=== PATIENT | female | born 1985 | race Caucasian/White ===

== ENCOUNTER → 2021-09-23 15:08 | Outpatient (BNVA) | payer OTHER, SELFPAY | PROVIDERS: PCP Nurse Practitioner Family; Visit Provider Advanced Practice Midwife ==

== ENCOUNTER 2021-11-23 10:13 | Outpatient (REF) | payer OTHER, SELFPAY ==
[2021-11-23 16:07] LABS: CT PCR NOT DETECTED (Not Detect.); NG PCR NOT DETECTED (Not Detect.)
== END 2021-11-23 10:14 | disposition home or self-care (01) ==
LOC: HO.LAB 10:13
PROVIDERS: PCP Nurse Practitioner Family; Visit Provider Advanced Practice Midwife
DX: Z30.433 Encounter for removal and reinsertion of intrauterine contraceptive device (principal); Z20.2 Contact with and (suspected) exposure to infections with a predominantly sexual mode of transmission
CPT/HCPCS: 58300; 58301; 81025; 87491; 87591; J7298

== ENCOUNTER 2022-03-05 14:27 | Outpatient (REF) | payer OTHER, SELFPAY ==
[2022-03-11 15:21] LABS: HPV mRNA E6/E7 rflx Not Detected (Not Detected)
== END 2022-03-05 14:28 | disposition home or self-care (01) ==
LOC: HO.LAB 14:27
PROVIDERS: Visit Provider Advanced Practice Midwife
DX: Z01.419 Encounter for gynecological examination (general) (routine) without abnormal findings (principal); Z11.51 Encounter for screening for human papillomavirus (HPV)
CPT/HCPCS: 87624; 88142

== ENCOUNTER 2023-07-08 09:16 | Outpatient (AMB) | payer OTHER, SELFPAY ==
--- NOTE | 2023-07-08 09:18 | MHC.PC.OV ---
Vital Signs 07/08/23 09:19 Height 5 ft 2 in Weight 150 lb 4 oz BMI 27.5 BP 118/70 Blood Pressure Location Lt brachial Position Sitting Pulse 84 Pulse Source Pulse Oximeter Pulse Oximetry (%) 98 Oxygen Delivery Method Room Air Intake Visit Reasons[facility] Console Operator Required: No Accompanied by: Self / Same As Patient Allergies No Known Drug Allergies Allergy (Unknown, Verified 07/08/23 09:33) none Medication List - Last Reconciled 07/08/23 by IGNACIO García hydroxyzine HCl 25 mg PO Q6-8H PRN levonorgestrel (Mirena) intrauterine Tobacco use date assessed: 07/08/23 Dental Screening Dental Screen Date: 07/08/23 Did you have a dental visit in the last 12 months?: No Did you have a dental problem in the last 6 months where you did not have access to dental care?: No Was dental information given to patient?: Yes HPI HPI Comments History of Present Illness Details 37-year-old female past medical history significant for anxiety, depression, ADHD. Patient presents today for transfer care and physical exam. Patient reports was previously followed by [facility] and psychiatry for Adderall prescriptions however she missed appointments and was discharged from the practice. Patient requesting referral to reestablish care with medication provider referral entered to [facility] psychiatry. 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 Will send one-month supply these medications until patient able to reestablish care with medication provider. Patient reports up-to-date with eye exam Declined flu shot, Tdap up-to-date Patient currently follows with Елена RADER for Pap smears. [facility] Surgical History History of lumpectomy of right breast [place] teeth removed Family History Mother No problems noted. Father No problems noted. Social History (Updated 07/08/23 @ 09:39 by IGNACIO García) Household Members Other:: partner Housing: House Alcohol intake: current Alcohol intake frequency: a few times a week Patient Tobacco Use Status: Never used Tobacco e-Cigarette/Vaping Use: Never Used Substance Use Type: Marijuana service: No Current occupational status: employed Current occupation: [email or web address] Current occupational exposures/hazards: No Cognitive needs: No Hearing needs: No Vision needs: Yes Questionnaire PHQ-9 Over the last 2 weeks, how often have you been bothered by any of the following problems? 1. Little interest or pleasure in doing things: not at all 2. Feeling down, depressed, or hopeless: not at all 3. Trouble falling or staying asleep, or sleeping too much: not at all 4. Feeling tired or having little energy: not at all 5. Poor appetite or overeating: not at all 6. Feeling bad about yourself - or that you are a failure or have let yourself or your family down: not at all 7. Trouble concentrating on things, such as reading the newspaper or watching television: not at all 8. Moving or speaking so slowly that other people could have noticed. Or the opposite - being so fidgety or restless that you have been moving around a lot more than usual: not at all 9. Thoughts that you would be better off or of hurting yourself in some way: not at all Total score: 0 77840 - PHQ-9 Billing: Yes Source: Developed by Drs. Abilio Little, Billie Corbett, Richy Hart and colleagues, with an educational madeline from [employer]. Thrive Questionnaire Date Thrive assessed: 07/08/23 I am a: Patient What is your living situation today?: I have a steady place to live Within the past 12 months, did the food you bought not last and you didn't have the money to get more?: Never true Within the past 12 months, did you worry whether your food would run out before you got money to buy more?: Never true Do you have trouble paying for medicines?: No Do you have trouble getting transportation to medical appointments?: No Do you have trouble paying your heating and electricity bill?: No Do you have trouble taking care of your child, family member or friend?: No Do you have trouble with day-to-day activities such as bathing, preparing meals, shopping, managing finances, etc.?: No Are you currently unemployed and looking for a job?: No Are you interested in more education?: No Please select the resources that you would like help with: None Currently or been in a relationship where the following occur: no concerns reported AUDIT C Alcohol Use Questionnaire (AUDIT-C) 1. How often do you have a drink containing alcohol?: 2-3 times a week 2. How many drinks containing alcohol do you have on a typical day when you are drinking?: 3 or 4 3. How often do you have six or more drinks on one occasion?: Never Total Score: 4 KATHY-7 AMB Questionnaire KATHY-7 Date KATHY - 7 assessed: 07/08/23 Feeling nervous, anxious, or on edge: 0 = Not at all Not being able to stop or control worryin = Not at all Worrying too much about different things: 0 = Not at all Trouble relaxin = Not at all Being so restless that it is hard to sit still: 0 = Not at all Becoming easily annoyed or irritable: 0 = Not at all Feeling afraid as if something awful might happen: 0 = Not at all Total KATHY-7 score (0-4 normal; 5-9 mild; 10-14 moderate; 15-21 severe): 0 Source: Developed by Drs. Abilio Little, Billie Corbett, Richy Hart and colleagues, with an educational madeline from [employer]. KATHY-7 Assessment Billing KATHY-7 Assessment Tool: KATHY-7 Assessment 26457 Review of Systems Const Denies chills, Denies fatigue, Denies fever(s) and Denies poor appetite Eyes Denies no additional complaints ENT Reports Normal hearing present Card Denies chest pain, Denies syncope, Denies rapid heart rate and Denies dyspnea Resp Denies cough and Denies dyspnea GI Denies change in stool character, Denies constipation, Denies diarrhea, Denies nausea and Denies vomiting Denies urinary frequency, Denies dysuria and Denies urinary urgency Neuro Reports Normal hearing present, Denies confusion and Denies syncope Psych Denies confusion Endo Denies fatigue Physical exam (Primary Care) Vital Signs: Last Vital Signs Pulse 84 07/08/23 09:19 BP 118/70 07/08/23 09:19 Pulse Ox 98 07/08/23 09:19 Oxygen Delivery Method Room Air 07/08/23 09:19 BMI result Body Mass Index 27.5 Tobacco/Smoking Status: Tobacco use Status Tobacco use date assessed 07/08/23 07/08/23 09:26 Patient Tobacco Use Status Never used Tobacco 07/08/23 09:26 e-Cigarette/Vaping Use Never Used 07/08/23 09:26 PHQ-9: PHQ-9 Score PHQ-9: Total score 0 07/08/23 09:26 Thrive Assessment: Date of Thrive Assessment Date Thrive assessed 07/08/23 07/08/23 09:26 Currently or been in a relationship where the following occur: no concerns reported Const General: No confusion Orientation/consciousness: No confusion HENMT Head: Yes normocephalic and Yes atraumatic Ears: external ears normal and TM's normal bilaterally General nose exam: Normal external nose present and Normal nasal mucous membranes and turbinates present Face and sinus: Yes normal facial exam and Yes sinuses nontender Mouth: moist mucous membranes Throat: Yes tonsils normal Eyes Conjunctivae: conjunctivae normal Sclerae: sclerae normal Pupils: Equal, round and reactive pupils present and Pupils normal by confrontation EOM: EOMs intact bilaterally Direct Ophthalmoscopy: normal light reflex Neck Neck: Yes no lymphadenopathy and Yes supple Thyroid: Thyroid normal Chest Chest palpation & inspection: normal inspection of the chest Resp Effort & Inspection: normal respiratory effort Auscultation: clear to auscultation bilaterally, no crackles, no rhonchi and no wheezes Cardio Rate: regular rate Rhythm: regular rhythm Peripheral pulses: radial pulses present and dorsalis pedis present GI Inspection: Yes normal to inspection Palpation (GI): Soft to palpation, nontender and No hepatosplenomegaly present Auscultation: normoactive bowel sounds Skin General skin exam: no rashes or lesions noted Neuro General: No confusion Cranial nerves: Yes Equal, round and reactive pupils present and Yes Normal hearing present Cognition (Neuro): normal cognition Gait exam (Neuro): Normal gait present Motor exam (neuro): 5/5 motor strength present throughout Deep tendon reflexes (DTR's): Right brachioradialis reflex intensity grade: 2+, Left brachioradialis reflex intensity grade: 2+, Right patellar reflex intensity grade: 2+ and Left patellar reflex intensity grade: 2+ Extrem General: No edema Assessment and Plan Assessment & Plan (1) ADHD: Code(s): F90.9 - Attention-deficit hyperactivity disorder, unspecified type Plan: Lateral prescription sent to patient's pharmacy for one-month supply, until patient able to reestablish care with new psychiatrist. (2) Physical exam, annual: Code(s): Z00.00 - Encounter for general adult medical examination without abnormal findings Plan: Follow up in 1 year or sooner if needed. Fasting labs ordered. Plan Follow-up in 1 year for physical exam. Orders: Orders Complete Blood Count Auto Diff Today Z13.0 - Encounter for screening for diseases of the blood and blood-forming organs and certain disorders involving the immune mechanism Lipid Panel Today Z13.220 - Encounter for screening for lipoid disorders Comprehensive [place]. Panel Fast Today F90.9 - Attention-deficit hyperactivity disorder, unspecified type TSH reflex Free T4 Today Z13.29 - Encounter for screening for other suspected endocrine disorder Vitamin D 25-OH Total Today Z13.21 - Encounter for screening for nutritional disorder Referrals Psychiatry Referral F90.9 - Attention-deficit hyperactivity disorder, unspecified type Medications: New fluticasone propionate 50 mcg/actuation (Flonase Allergy Relief) administer into each nostril 2 sprays intranasal DAILY 16 grams 3RF dextroamphetamine-amphetamine 10 mg ER Partial Fill upon patient request. 10 mg PO DAILY 30 caps 0RF F90.9 - Attention-deficit hyperactivity disorder, unspecified type dextroamphetamine-amphetamine 10 mg Partial Fill upon patient request. 10 mg PO DAILY 30 tabs 0RF Coding Level of Care Code Est Pt Prev Care 18-39y(62513) Diagnoses ADHD F90.9 Physical exam, annual Z00.00 Additional Codes KATHY-7 Assessment Billing - KATHY-7 Assessment Tool: KATHY-7 Assessment 42648 ([id number])
[2023-07-08 09:19] VITALS: BP 118/70; PULSE 84; O2SAT 98; BMI 27.5
== END 2023-07-08 09:50 | disposition home or self-care (01) ==
PROVIDERS: PCP Nurse Practitioner Family; Visit Provider Nurse Practitioner Family
DX: Z00.00 Encounter for general adult medical examination without abnormal findings (principal); F90.9 Attention-deficit hyperactivity disorder, unspecified type
CPT/HCPCS: 99395

== ENCOUNTER 2023-08-24 10:11 | Outpatient (AMB) | payer OTHER, SELFPAY ==
[2023-08-24 10:43] VITALS: BP 118/80; BMI 27.6
--- NOTE | 2023-08-24 10:43 | MHC.OFFVIS ---
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 Doing well with concerns: Bilateral pelvic pain on and off alternating sides brief short stabbing discomfort. She denies any urinary symptoms. She tries to eat healthy and stays active with exercise. She denies vaginal itching and irritation. STI screening offered; she accepts. Denies family history of breast, ovarian or colon cancer. Last pap smear 2021, negative. Prior abnormal. [facility] Medical History ADHD Anxiety and depression Surgical History History of lumpectomy of right breast [place] teeth removed Family History Mother No problems noted. Father No problems noted. Social History Household Members Other:: partner Housing: House Alcohol intake: current Alcohol intake frequency: a few times a week Patient Tobacco Use Status: Never used Tobacco e-Cigarette/Vaping Use: Never Used Substance Use Type: Marijuana service: No Current occupational status: employed Current occupation: [employer] Current occupational exposures/hazards: No Cognitive needs: No Hearing needs: No Vision needs: Yes Female Reproductive History Menstrual control method: progestin IUCD (Mirena 11/2021) Total pregnancies: 0 Date of last pap smear: 03/05/22 (neg pap and hpv) Review of Systems Const All systems reviewed & are unremarkable except as noted in HPI and below Reports as per HPI Eyes Reports no additional complaints ENT Reports no additional complaints Card Reports no additional complaints Resp Reports no additional complaints GI Reports as per HPI and Reports no additional complaints Reports as per HPI Musc Reports no additional complaints Skin/Breast Reports as per HPI Neuro Reports no additional complaints Psych Reports no additional complaints Endo Reports no additional complaints Kit/Lymph Reports no additional complaints Aller/Immun Reports no additional complaints Physical Exam Vital Signs: Last Vital Signs BP 118/80 08/24/23 10:43 BMI result Body Mass Index 27.6 Const General: cooperative, healthy appearing, no acute distress, well developed and alert Orientation/consciousness: patient oriented x3 HEENT Head: Yes normal to inspection Eyes General: appearance normal, both eyes and all related structures Neck Neck: Yes normal visual inspection Thyroid: Thyroid normal Chest Chest palpation & inspection: normal inspection of the chest and other (no puckering, dimpling, peau de orange, retraction, discharge, masses) Breast/axilla inspection: normal inspection of the breasts Breast/axilla palpation: normal palpation of the breasts Resp Effort & Inspection: normal respiratory effort GI Inspection: Yes normal to inspection Palpation (GI): Soft to palpation Rectal Exam - Female: deferred General: Yes bladder normal to palpation External Female Exam: normal external appearance and normal appearance of the urethra Speculum Exam - Vagina: normal appearance of the vagina, normal palpation and normal vaginal discharge Speculum Exam - Cervix: normal appearance of the cervix, normal palpation and Other cervical findings present (IUD strings press) Bimanual exam- vagina & uterus: normal bimanual exam, normal palpation, uterine size normal (Slightly elongated possible fibroid), bladder normal to palpation, normal palpation and non-tender Bimanual Exam- Adnexa, other: no masses Skin General skin exam: no rashes or lesions noted Rashes: no rashes Neuro General: patient oriented x3 Cognition (Neuro): normal cognition Extrem General: Yes normal to inspection Psych Attitude: cooperative Thought process: Normal thought process present Results AMB Urinalysis, Automated UA Leukoctes 0 [place]/uL Last Edit by SHI Rodriguez on 08/24/23 11:30 UA Nitrite Negative Last Edit by SHI Rodriguez on 08/24/23 11:30 UA Urobilinogen 0 mg/dL Last Edit by SHI Rodriguez on 08/24/23 11:30 UA Protein 0 mg/dL Last Edit by SHI Rodriguez on 08/24/23 11:30 UA pH 7.5 Last Edit by SHI Rodriguez on 08/24/23 11:30 UA Blood 2 Andi/uL Last Edit by SHI Rodriguez on 08/24/23 11:30 UA Specific [place] 1.010 Last Edit by EmeliaSHI Kirk on 08/24/23 11:30 UA Ketone Negative Last Edit by SHI Rodriguez on 08/24/23 11:30 UA Bilirubin 0 mg/dL Last Edit by SHI Rodriguez on 08/24/23 11:30 UA Glucose 0 mg/dL Last Edit by SHI Rodriguez on 08/24/23 11:30 Results Reviewed Results Reviewed: Laboratory Last Values Urine pH (Auto) 7.5 08/24/23 11:13 Specific [place] (Auto) 1.010 08/24/23 11:13 Urine Protein (Auto) 0 mg/dL 08/24/23 11:13 Glucose (UA)(Auto) 0 mg/dL 08/24/23 11:13 Urine Ketones (Auto) Negative 08/24/23 11:13 Urine Blood (Auto) 2 Andi/uL 08/24/23 11:13 Urine Nitrite (Auto) Negative 08/24/23 11:13 Urine Bilirubin (Auto) 0 mg/dL 08/24/23 11:13 Urine Urobilinogen (Auto) 0 mg/dL 08/24/23 11:13 Leukocyte Esterase (Auto) 0 [place]/uL 08/24/23 11:13 Assessment & Plan Assessment & Plan (1) Encounter for well woman exam with routine gynecological exam: Code(s): Z01.419 - Encounter for gynecological examination (general) (routine) without abnormal findings (2) Pelvic pain: Code(s): R10.2 - Pelvic and perineal pain (3) IUD surveillance: Code(s): Z30.431 - Encounter for routine checking of intrauterine contraceptive device Plan Discussed: Workup for her pelvic pain to include cultures for urine in cervical, all pelvic ultrasound. And follow-up results in-person. Discussed IUD possible ovarian cyst development. Current recommendations for pap smears per ASCCP guidelines. Breast awareness and periodic breast exams. Maintain a healthy lifestyle including a well balanced diet and routine exercise. Use condoms for STI and prevention. Patient verbalizes understanding and agrees to the plan of care. She was given opportunity to ask questions and all questions were answered to the best of my ability. 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 This note is constructed using voice recognition software. While every effort has been made to ensure accuracy, volcanology teacher errors may have been included. Orders: Orders HIV Ab/Ag Today Z20.2 - Contact with and (suspected) exposure to infections with a predominantly sexual mode of transmission Hepatitis C Antibody Today Z20.2 - Contact with and (suspected) exposure to infections with a predominantly sexual mode of transmission Hepatitis B Core Antibody Today Z20.2 - Contact with and (suspected) exposure to infections with a predominantly sexual mode of transmission CT NG by PCR Today R10.2 - Pelvic and perineal pain US pelvic and transvaginal Today R10.2 - Pelvic and perineal pain, Z30.431 - Encounter for routine checking of intrauterine contraceptive device Syphilis Screen Today Z20.2 - Contact with and (suspected) exposure to infections with a predominantly sexual mode of transmission Bacterial Vaginosis Panel Today R10.2 - Pelvic and perineal pain AMB Urinalysis Automated Today R10.2 - Pelvic and perineal pain Coding Level of Care Code Est Pt Prev Care 18-39y(97955) Diagnoses Encounter for well woman exam with routine gynecological exam Z01.419 Pelvic pain R10.2 IUD surveillance Z30.431
== END 2023-08-24 11:20 | disposition home or self-care (01) ==
LOC: HO.HWS 10:11
PROVIDERS: PCP Internal Medicine; Visit Provider Advanced Practice Midwife
DX: Z01.419 Encounter for gynecological examination (general) (routine) without abnormal findings (principal); R10.2 Pelvic and perineal pain; Z30.431 Encounter for routine checking of intrauterine contraceptive device
CPT/HCPCS: 99395

== ENCOUNTER 2023-08-24 10:11 | Outpatient (REF) | payer OTHER, SELFPAY | END 2023-08-24 10:12 | disposition home or self-care (01) | LOC: HO.LNP 10:11 | PROVIDERS: PCP Internal Medicine; Visit Provider Advanced Practice Midwife | DX: R10.2 Pelvic and perineal pain (principal) | CPT/HCPCS: 81003 ==

== ENCOUNTER 2023-08-24 11:13 | Outpatient (REF) | payer OTHER, SELFPAY ==
[2023-08-25 14:07] LABS: BV Int Neg Control Negative (Negative); BV Int Pos Control Positive (Positive)
[2023-08-26 16:49] LABS: CT PCR NOT DETECTED (Not Detect.); NG PCR NOT DETECTED (Not Detect.)
== END 2023-08-24 11:14 | disposition home or self-care (01) ==
LOC: HO.LAB 11:13
PROVIDERS: Visit Provider Advanced Practice Midwife
DX: R10.2 Pelvic and perineal pain (principal)
CPT/HCPCS: 0353U; 87480; 87510; 87660

== ENCOUNTER 2023-11-01 13:04 | Outpatient (REF) | payer OTHER, SELFPAY ==
--- NOTE | ~2023-11-01 | US_ITS ---
EXAMINATION: US PELVIS COMPLETE CLINICAL INFORMATION: Pelvic pain COMPARISON: None TECHNIQUE: Transabdominal and transvaginal imaging was performed. FINDINGS: The uterus is of normal size and echogenicity measuring 7.1 x 3.2 x 3.3 cm. A regular homogeneous endometrium is identified measuring 0.3 cm. A 0.9 cm intramural myoma in the anterior body of the uterus. Intrauterine device in place. Both ovaries are of normal size and echogenicity. The right measures 3.5 x 1.3 x 1.7 cm for a volume of 4 mL. The left measures 3.2 x 1.7 x 2.0 cm for a volume of 5.7 mL. There is no pelvic free fluid. US/US pelvic and transvaginal IMPRESSION: 1. Intrauterine device in place. 2. A 0.9 cm intramural myoma in the anterior body of the uterus. 3. Unremarkable sonographic appearance of the ovaries.
== END 2023-11-01 13:05 | disposition home or self-care (01) ==
LOC: HO.US 13:04
PROVIDERS: PCP Internal Medicine; Visit Provider Advanced Practice Midwife
DX: Z30.431 Encounter for routine checking of intrauterine contraceptive device (principal); R10.2 Pelvic and perineal pain
CPT/HCPCS: 76830; 76856

== ENCOUNTER 2023-12-01 15:10 | Outpatient (AMB) | payer OTHER, SELFPAY ==
--- NOTE | 2023-12-01 15:24 | MHC.OFFVIS ---
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 History of IUD use. She reports the pain has resolved. [facility] Medical History (Updated 12/01/23 @ 15:41 by Елена Prado CNM) Fibroid ADHD Anxiety and depression Surgical History History of lumpectomy of right breast [place] teeth removed Family History Mother No problems noted. Father No problems noted. Social History Household Members Other:: partner Housing: House Alcohol intake: current Alcohol intake frequency: a few times a week Patient Tobacco Use Status: Never used Tobacco e-Cigarette/Vaping Use: Never Used Substance Use Type: Marijuana service: No Current occupational status: employed Current occupation: [employer] Current occupational exposures/hazards: No Cognitive needs: No Hearing needs: No Vision needs: Yes Female Reproductive History Menstrual control method: progestin IUCD Date of last pap smear: 03/08/22 (negative) Review of Systems Const All systems reviewed & are unremarkable except as noted in HPI and below Endo Reports no additional complaints Physical Exam Const General: cooperative, healthy appearing and no acute distress Psych Appearance: well kempt Attitude: cooperative Thought process: Normal thought process present Results Reviewed Results Reviewed: [address] [address] Ultrasound Report Signed Patient: Dhara Jin MR#: [id number] : 1985 Acct:[id number] Age/Sex: 37 / F ADM Date: 11/01/23 Loc: HO.US Attending Dr: Елена Prado CNM Ordering Physician: Елена Prado CNM Date of Service: 11/01/23 Procedure(s): US pelvic and transvaginal Accession Number(s): [id number] cc: Елена Prado CNM; Salena Eng MD~ EXAMINATION: US PELVIS COMPLETE CLINICAL INFORMATION: Pelvic pain COMPARISON: None TECHNIQUE: Transabdominal and transvaginal imaging was performed. FINDINGS: The uterus is of normal size and echogenicity measuring 7.1 x 3.2 x 3.3 cm. A regular homogeneous endometrium is identified measuring 0.3 cm. A 0.9 cm intramural myoma in the anterior body of the uterus. Intrauterine device in place. Both ovaries are of normal size and echogenicity. The right measures 3.5 x 1.3 x 1.7 cm for a volume of 4 mL. The left measures 3.2 x 1.7 x 2.0 cm for a volume of 5.7 mL. There is no pelvic free fluid. US/US pelvic and transvaginal IMPRESSION: 1. Intrauterine device in place. 2. A 0.9 cm intramural myoma in the anterior body of the uterus. 3. Unremarkable sonographic appearance of the ovaries. Dictated By: Shanice Cooney MD Signed By: <Electronically signed by Shanice Cooney MD in OV> 11/04/23 1822 DD/ 1353 TD/TT: Studio Coordinator: Assessment & Plan Assessment & Plan (1) Encounter to discuss test results: Code(s): Z71.2 - Person consulting for explanation of examination or test findings (2) Fibroid: Code(s): D21.9 - Benign neoplasm of connective and other soft tissue, unspecified Plan Discussed: Ultrasound findings small fibroid, IUD in place . Counseled re: Leiomyoma: common pelvic neoplasm. Differential diagnosis-may include leiomyosarcoma which is a rare uterine sarcoma 3-7/100,000, difficult to distinguish from fibroids on ultrasound from uterine sarcoma's. Unlikely any single test will have a highly positive predictive value. Hysterectomy is not recommended for sole purpose of excluding malignant neoplasm. Report any PMB/AUB. Pelvic pressure, bloating, or pain. Consult for surgical exploration verses expectant management offered. Expectant management follow up for stability. Referral to MD if indicated for level of care. All of her questions and concerns were addressed to the best of my ability and shared decision making. She is agreeable to the plan of care. This note is constructed using voice recognition software. While every effort has been made to ensure accuracy, marking room supervisor errors may have been included. Orders: Orders US pelvic and transvaginal 08/06/24 D21.9 - Benign neoplasm of connective and other soft tissue, unspecified Coding Level of Care Code Est Pt Level 3 (90843) Diagnoses Encounter to discuss test results Z71.2 Fibroid D21.9
[2023-12-01 15:26] VITALS: BP 120/66; BMI 27.6
== END 2023-12-01 15:39 | disposition home or self-care (01) ==
PROVIDERS: PCP Internal Medicine; Visit Provider Advanced Practice Midwife
DX: Z71.2 Person consulting for explanation of examination or test findings (principal); D21.9 Benign neoplasm of connective and other soft tissue, unspecified
CPT/HCPCS: 99213

== ENCOUNTER → 2023-12-01 15:10 | Outpatient (BNVA) | payer OTHER, SELFPAY | PROVIDERS: PCP Internal Medicine; Visit Provider Advanced Practice Midwife | DX: Z71.2 Person consulting for explanation of examination or test findings (principal); D21.9 Benign neoplasm of connective and other soft tissue, unspecified | CPT/HCPCS: 99212 ==

== ENCOUNTER 2023-12-20 13:58 | Outpatient (AMB) | payer OTHER, SELFPAY ==
[2023-12-20 14:01] VITALS: BP 112/80; BMI 28.0
--- NOTE | 2023-12-20 14:01 | MHC.PC.OV ---
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: No Accompanied by: Self / Same As Patient Allergies No Known Drug Allergies Allergy (Unknown, Verified 12/20/23 14:27) none Medication List - Last Reconciled 12/20/23 by Salean Flores MD dextroamphetamine-amphetamine 10 mg ER 10 mg PO DAILY fluticasone propionate 50 mcg/actuation (Flonase Allergy Relief) 2 sprays intranasal DAILY levonorgestrel (Mirena) intrauterine Tobacco use date assessed: 12/20/23 Dental Screening Dental Screen Date: 12/20/23 Did you have a dental visit in the last 12 months?: No Did you have a dental problem in the last 6 months where you did not have access to dental care?: No Was dental information given to patient?: Patient has dentist HPI HPI Comments History of Present Illness Details This is a 38-year-old female with ADHD and mild major depression that comes today to establish care. Doing well with Adderall for her ADHD and has had no side effects. I thoroughly explained side effects such as elevated blood pressure, insomnia and addiction. She is aware that Adderall has no withdrawal symptoms. Her mild major depression has been stable with counseling. No need for medications. No chest pain or shortness on breath. [facility] Medical History (Updated 12/20/23 @ 16:01 by Salena Flores MD) Fibroid ADHD Anxiety and depression Surgical History History of lumpectomy of right breast [place] teeth removed Family History Mother No problems noted. Father No problems noted. Social History (Updated 12/20/23 @ 14:32 by Salena Flores MD) Household Members Other:: partner Housing: House Alcohol intake: current Alcohol intake frequency: a few times a week Alcohol type: beer and wine Patient Tobacco Use Status: Never used Tobacco e-Cigarette/Vaping Use: Never Used Second Hand Smoke Exposure: No Substance Use Type: Marijuana service: No Current occupational status: employed Current occupation: [employer] Current occupational exposures/hazards: No Cognitive needs: No Hearing needs: No Vision needs: Yes Questionnaire PHQ-9 Over the last 2 weeks, how often have you been bothered by any of the following problems? 1. Little interest or pleasure in doing things: not at all 2. Feeling down, depressed, or hopeless: not at all 3. Trouble falling or staying asleep, or sleeping too much: not at all 4. Feeling tired or having little energy: not at all 5. Poor appetite or overeating: not at all 6. Feeling bad about yourself - or that you are a failure or have let yourself or your family down: not at all 7. Trouble concentrating on things, such as reading the newspaper or watching television: several days 8. Moving or speaking so slowly that other people could have noticed. Or the opposite - being so fidgety or restless that you have been moving around a lot more than usual: more than half the days 9. Thoughts that you would be better off or of hurting yourself in some way: not at all Total score: 3 Depression Screening Interpretation: Positive Depression Screening Follow-up: Existing condition, Community Mental Health Worker F/U and Follow-up Visit Requested Depression Screening Done: Yes 45608 - PHQ-9 Billing: Yes Source: Developed by Drs. Abilio Little, Billie Corbett, Richy Hart and colleagues, with an educational madeline from [employer]. Thrive Questionnaire Date Thrive assessed: 12/20/23 I am a: Patient What is your living situation today?: I have a steady place to live Within the past 12 months, did the food you bought not last and you didn't have the money to get more?: Never true Within the past 12 months, did you worry whether your food would run out before you got money to buy more?: Never true Do you have trouble paying for medicines?: No Do you have trouble getting transportation to medical appointments?: No Do you have trouble paying your heating and electricity bill?: No Do you have trouble taking care of your child, family member or friend?: No Do you have trouble with day-to-day activities such as bathing, preparing meals, shopping, managing finances, etc.?: No Are you currently unemployed and looking for a job?: No Are you interested in more education?: No Please select the resources that you would like help with: None Currently or been in a relationship where the following occur: no concerns reported THRIVE Score: 0 AUDIT C Alcohol Use Questionnaire (AUDIT-C) 1. How often do you have a drink containing alcohol?: 2-3 times a week 2. How many drinks containing alcohol do you have on a typical day when you are drinking?: 1 or 2 3. How often do you have six or more drinks on one occasion?: Never Total Score: 3 KATHY-7 AMB Questionnaire KATHY-7 Date KATHY - 7 assessed: 12/20/23 Feeling nervous, anxious, or on edge: 1 = Several days Not being able to stop or control worryin = Not at all Worrying too much about different things: 1 = Several days Trouble relaxin = More than half the days Being so restless that it is hard to sit still: 2 = More than half the days Becoming easily annoyed or irritable: 2 = More than half the days Feeling afraid as if something awful might happen: 2 = More than half the days Total KATHY-7 score (0-4 normal; 5-9 mild; 10-14 moderate; 15-21 severe): 10 Source: Developed by Drs. Abilio Little, Billie Corbett, Richy Hart and colleagues, with an educational madeline from [employer]. KATHY-7 Assessment Billing KATHY-7 Assessment Tool: KATHY-7 Assessment 98940 Review of Systems Const All systems reviewed & are unremarkable except as noted in HPI and below Card Denies chest pain at rest, Denies chest pain with activity, Denies edema, Denies irregular heart rhythm, Denies claudication, Denies dyspnea, Denies dyspnea on exertion, Denies orthopnea, Denies paroxysmal nocturnal dyspnea and Denies slow heart rate Resp Denies cough, Denies dyspnea and Denies dyspnea on exertion Physical exam (Primary Care) Vital Signs: Last Vital Signs BP 112/80 12/20/23 14:01 BMI result Body Mass Index 28.0 Tobacco/Smoking Status: Tobacco use Status Tobacco use date assessed 12/20/23 12/20/23 14:19 Patient Tobacco Use Status Never used Tobacco 12/20/23 14:32 e-Cigarette/Vaping Use Never Used 12/20/23 14:32 PHQ-9: PHQ-9 Score PHQ-9: Total score 3 12/20/23 14:33 Depression Screening Interpretation: Positive Depression Screening Follow-up: Existing condition, Community Mental Health Worker F/U and Follow-up Visit Requested Thrive Assessment: Date of Thrive Assessment Date Thrive assessed 12/20/23 12/20/23 14:19 Currently or been in a relationship where the following occur: no concerns reported Resp Effort & Inspection: normal respiratory effort Auscultation: clear to auscultation bilaterally Cardio Jugular venous distension: no JVD Rate: regular rate Rhythm: regular rhythm Heart sounds: S1 normal heart sound present and S2 normal heart sound present Extrem General: Yes full ROM Assessment and Plan Assessment & Plan (1) ADHD: Code(s): F90.9 - Attention-deficit hyperactivity disorder, unspecified type Qualifiers: Attention deficit-hyperactivity disorder type: predominantly inattentive Qualified Code(s): F90.0 - Attention-deficit hyperactivity disorder, predominantly inattentive type Plan: Continue Adderall. (2) Mild major depression: Comment: Follow by counseling Code(s): F32.0 - Major depressive disorder, single episode, mild Plan: Continue counseling. Medications: Refilled dextroamphetamine-amphetamine 10 mg ER Partial Fill upon patient request. 10 mg PO DAILY 30 caps 0RF F90.9 - Attention-deficit hyperactivity disorder, unspecified type fluticasone propionate 50 mcg/actuation (Flonase Allergy Relief) administer into each nostril 2 sprays intranasal DAILY 16 grams 3RF Coding Level of Care Code Est Pt Level 3 (78900) Diagnoses Attention deficit hyperactivity disorder (ADHD), predominantly inattentive type F90.0 Attention deficit-hyperactivity disorder type: predominantly inattentive Mild major depression F32.0 Additional Codes KATHY-7 Assessment Billing - KATHY-7 Assessment Tool: KATHY-7 Assessment 87862 ([id number]) Time Spent (min) 19
== END 2023-12-20 14:39 | disposition home or self-care (01) ==
PROVIDERS: PCP Internal Medicine; Visit Provider Internal Medicine
DX: F90.0 Attention-deficit hyperactivity disorder, predominantly inattentive type (principal); F32.0 Major depressive disorder, single episode, mild
CPT/HCPCS: 99213

== ENCOUNTER 2025-05-16 10:49 | Outpatient (AMB) | payer OTHER, SELFPAY ==
[2025-05-16 11:06] VITALS: BP 118/80; PULSE 82; RESP 18; TEMP 36.3; O2SAT 97; BMI 29.0
--- NOTE | 2025-05-16 11:06 | A.OFFPC_ITS ---
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 Required: No Accompanied by: Self / Same As Patient Allergies No Known Drug Allergies Allergy (Unknown, Verified 05/16/25 11:23) none Medication List - Last Reconciled 05/16/25 by Salena Flores MD dextroamphetamine sulfate 5 mg PO BID 30 days dextroamphetamine-amphetamine 10 mg ER 10 mg PO DAILY 30 days levonorgestrel (Mirena) intrauterine Tobacco use date assessed: 05/16/25 Dental Screening Dental Screen Date: 05/16/25 Did you have a dental visit in the last 12 months?: No Did you have a dental problem in the last 6 months where you did not have access to dental care?: No Was dental information given to patient?: No HPI HPI Comments History of Present Illness Details Patient comes today complaining of a skin mole that has been present for over a year but now it has grown in size. Denies any pruritus or bleeding. Will be referred to Dermatology. She has ADHD on Adderall and reports no side effects. [facility] Medical History (Updated 05/16/25 @ 11:27 by Salena Flores MD) Fibroid ADHD Anxiety and depression Surgical History History of lumpectomy of right breast [place] teeth removed Family History Mother No problems noted. Father No problems noted. Social History Household Members Other:: partner Housing: House Alcohol intake: current Alcohol intake frequency: a few times a week Alcohol type: beer and wine Patient Tobacco Use Status: Never used Tobacco e-Cigarette/Vaping Use: Never Used Second Hand Smoke Exposure: No Substance Use Type: Marijuana service: No Current occupational status: employed Current occupation: [employer] Current occupational exposures/hazards: No Cognitive needs: No Hearing needs: No Vision needs: Yes Questionnaire PHQ-9 Over the last 2 weeks, how often have you been bothered by any of the following problems? 1. Little interest or pleasure in doing things: not at all 2. Feeling down, depressed, or hopeless: not at all 3. Trouble falling or staying asleep, or sleeping too much: not at all 4. Feeling tired or having little energy: not at all 5. Poor appetite or overeating: not at all 6. Feeling bad about yourself - or that you are a failure or have let yourself or your family down: not at all 7. Trouble concentrating on things, such as reading the newspaper or watching television: several days 8. Moving or speaking so slowly that other people could have noticed. Or the opposite - being so fidgety or restless that you have been moving around a lot more than usual: not at all 9. Thoughts that you would be better off or of hurting yourself in some wa y: not at all Total score: 1 Depression Screening Interpretation: Negative Depression Screening Done: Yes 90591 - PHQ-9 Billing: Yes Source: Developed by Drs. Abilio Little, Billie Corbett, Richy Hart and colleagues, with an educational madeline from [employer]. Thrive Questionnaire Date Thrive assessed: 12/20/23 I am a: Patient What is your living situation today?: I have a steady place to live Within the past 12 months, did the food you bought not last and you didn't have the money to get more?: I choose not to answer this question Within the past 12 months, did you worry whether your food would run out before you got money to buy more?: I choose not to answer this question Do you have trouble paying for medicines?: I choose not to answer this question Do you have trouble getting transportation to medical appointments?: No Do you have trouble paying your heating and electricity bill?: Yes Do you have trouble taking care of your child, family member or friend?: No Do you have trouble with day-to-day activities such as bathing, preparing meals, shopping, managing finances, etc.?: I choose not to answer this question Are you currently unemployed and looking for a job?: I choose not to answer this question Are you interested in more education?: No Please select the resources that you would like help with: None Currently or been in a relationship where the following occur: No concerns reported THRIVE Score: 1 AUDIT C Alcohol Use Questionnaire (AUDIT-C) 1. How often do you have a drink containing alcohol?: 2-3 times a week 2. How many drinks containing alcohol do you have on a typical day when you are drinking?: 1 or 2 3. How often do you have six or more drinks on one occasion?: Never Total Score: 3 KATHY-7 AMB Questionnaire KATHY-7 Date KATHY - 7 assessed: 12/20/23 Feeling nervous, anxious, or on edge: 1 = Several days Not being able to stop or control worryin = Not at all Worrying too much about different things: 0 = Not at all Trouble relaxin = Several days Being so restless that it is hard to sit still: 1 = Several days Becoming easily annoyed or irritable: 1 = Several days Feeling afraid as if something awful might happen: 1 = Several days Total KATHY-7 score (0-4 normal; 5-9 mild; 10-14 moderate; 15-21 severe): 5 Source: Developed by Drs. Abilio Little, Billie Corbett, Richy Hart and colleagues, with an educational madeline from [employer]. KATHY-7 Assessment Billing KATHY-7 Assessment Tool: KATHY-7 Assessment 82539 Review of Systems Const All systems reviewed & are unremarkable except as noted in HPI and below Card Denies chest pain at rest, Denies chest pain with activity, Denies edema, Denies irregular heart rhythm, Denies claudication, Denies dyspnea, Denies dyspnea on exertion, Denies orthopnea, Denies paroxysmal nocturnal dyspnea and Denies slow heart rate Resp Denies cough, Denies dyspnea and Denies dyspnea on exertion GI Denies abdominal pain, Denies change in bowel habits, Denies excessive flatus, Denies nausea and Denies vomiting Physical exam (Primary Care) Vital Signs: Last Vital Signs Temp 97.3 F 05/16/25 11:06 Pulse 82 05/16/25 11:06 Resp 18 05/16/25 11:06 BP 118/80 05/16/25 11:06 Pulse Ox 97 05/16/25 11:06 Oxygen Delivery Method Room Air 05/16/25 11:06 BMI result Body Mass Index 29.0 Tobacco/Smoking Status: Tobacco use Status Tobacco use date assessed 05/16/25 05/16/25 11:13 Patient Tobacco Use Status Never used Tobacco 05/16/25 11:13 e-Cigarette/Vaping Use Never Used 05/16/25 11:13 PHQ-9: PHQ-9 Score PHQ-9: Total score 1 05/16/25 11:13 Depression Screening Interpretation: Negative Thrive Assessment: Date of Thrive Assessment Date Thrive assessed 12/20/23 05/16/25 11:13 Currently or been in a relationship where the following occur: No concerns reported Resp Effort & Inspection: normal respiratory effort Auscultation: clear to auscultation bilaterally Cardio Jugular venous distension: no JVD Rate: regular rate Rhythm: regular rhythm Heart sounds: S1 normal heart sound present and S2 normal heart sound present GI Inspection: Yes normal to inspection Palpation (GI): Soft to palpation and nontender Auscultation: normal bowel sounds Extrem General: Yes full ROM Coding Level of Care Code Est Pt Level 3 (88032) Diagnoses Attention deficit hyperactivity disorder (ADHD), predominantly inattentive type F90.0 Attention deficit-hyperactivity disorder type: predominantly inattentive Skin lesion L98.9 Additional Codes PHQ-9 - 95456 - PHQ-9 Billing: Yes ([id number]) KATHY-7 Assessment Billing - KATHY-7 Assessment Tool: KATHY-7 Assessment 07095 ([id number]) Time Spent (min) 18 Assessment & Plan Assessment & Plan (1) ADHD: Code(s): F90.9 - Attention-deficit hyperactivity disorder, unspecified type Category: Medical Qualifiers: Attention deficit-hyperactivity disorder type: predominantly inattentive Qualified Code(s): F90.0 - Attention-deficit hyperactivity disorder, predominantly inattentive type (2) Skin lesion: Code(s): L98.9 - Disorder of the skin and subcutaneous tissue, unspecified Category: Medical Plan Continue same meds. Referred to Dermatology. Orders: Referrals Dermatology Referral L98.9 - Disorder of the skin and subcutaneous tissue, unspecified
--- OUTSIDE RECORDS SUMMARY | 2025-05-16 13:19 | XMS_ITS ---
Author Name [facility] Organization Unknown Care Team Organization Name Specialty Phone Email Start Date End [facility]
--- OUTSIDE RECORDS SUMMARY | 2025-05-16 13:19 | XMS_ITS | Clinical Summary ---
Author Organization [facility] Address [address] [place] [address] Phone Care Team Providers Care Exchange Underwriting Consultant Name Role Phone Unknown, Unknown Primary Care Provider Aly carey Allergies No known active allergies Medications levonorgestrel (MIRENA) 20 mcg/24 hours (5 yrs) 52 mg intrauterine device 1 Device by Intrauterine route Once every 5 years. Active dextroamphetamin e sulfate 5 MG tablet 5 Active dextroamphetamin e-amphetamine (ADDERALL XR) 10 MG 24 hr capsule Take 1 capsule by mouth every morning. 4 Active Active Problems No known active problems Social History Tobacco Use Types Packs/Day Years Used Date Smoking Tobacco: Never Assessed Education Answer Date Recorded Are you interested in more education? Not on chester e 11/19/2022 Are you concerned about learning? Not on file 11/19/2022 No 11/19/2022 No 11/19/2022 Digital Access Answer Date Recorded No 12/18/2022 No 12/18/2022 Reliable internet access at home? Not on file 12/18/2022 Device with a working camera? Not on file Comments Unknown Sex and Gender Information Value Date Recorded Sex Assigned at Not on file Legal Sex Female 4:49 PM EDT Gender Identity Not on file Sexual Orientation Not on file Last Filed Vital Signs Vital Sign Reading Time Taken Comments Blood Pressure 138/79 08/02/2024 1:13 PM EST Pulse 101 08/02/2024 1:13 PM EST Temperature 36.6 C (97.9 F) 08/02/2024 1:13 PM EST Respiratory Rate 17 08/02/2024 1:13 PM EST Oxygen Saturation 97% 08/02/2024 1:13 PM EST Inhaled Oxygen Concentration - - Weight 61.2 kg (135 lb) 08/02/2024 1:13 PM EST Height 154.9 cm (5' 1 ) 08/02/2024 1:13 PM EST Body Mass Index 25.51 08/02/2024 1:13 PM EST Plan of Treatment Health Maintenance Due Date Last Done Comments DEPRESSION SCREENING 1996 SMOKING Hx and SMOKELESS TOBACCO SCREENING 1997 HEPATITIS C SCREENING 2002 HIV ONE-TIME SCREENING (18-6 5 YEARS) 2002 PAP SMEAR 2005 SCREENING FOR DIABETES 11/03/2019 MAMMOGRAM 2024 INFLUENZA VACCINE (#1) 2025 COVID-19 VACCINE (2024-2 6 season) 2025 03/24/2021, 03/03/2021 Adult Td,Tdap Booster 10/26/2026 10/26/2016 , 12/23/2006 HEPATITIS A VACCINES Aged Out No long er eligible based on patient's age to complete this topic HIB VACCINES Aged Out No longer eligi ble based on patient's age to complete this topic MENINGOCOCCAL VACCINES (ACWY) Aged Out No longer eligible based on patient's age to complete this topic MENINGOCOCCAL VACCINES (B) Aged Out N o longer eligible based on patient's age to complete this topic PNEUMOCOCCAL VACCINES (0-49 years) Aged Out No longer eligible b ased on patient's age to complete this topic Medical Devices Not on file Insurance [facility] PUBLIC [employer]ANS DIRECT JAZMIN ESPARZA [id number] [facility] DIRECT Care Teams Exchange Underwriting Consultant Relationship Specialty Start Date End Date Unknown, Unknown, PCP - General 02/25/21 Additional Source Comments The information contained in this document represents components of the legal health record. It is not the complete legal health record.[facility]
== END 2025-05-16 11:30 | disposition home or self-care (01) ==
LOC: HO.HMCH 10:50
PROVIDERS: PCP Internal Medicine; Visit Provider Internal Medicine
DX: F90.0 Attention-deficit hyperactivity disorder, predominantly inattentive type (principal); L98.9 Disorder of the skin and subcutaneous tissue, unspecified

== ENCOUNTER → 2025-05-16 10:49 | Outpatient (BNVA) | payer OTHER, SELFPAY | PROVIDERS: PCP Internal Medicine; Visit Provider Internal Medicine | DX: F90.0 Attention-deficit hyperactivity disorder, predominantly inattentive type (principal); D22.9 Melanocytic nevi, unspecified | CPT/HCPCS: 96127; 99212 ==

== ENCOUNTER 2025-06-18 08:29 | Outpatient (AMB) | payer OTHER, SELFPAY ==
[2025-06-18 08:43] VITALS: BP 120/80; PULSE 87; TEMP 36.2; O2SAT 99; BMI 29.3
--- NOTE | 2025-06-18 08:43 | A.OFFPC_ITS ---
Vital Signs 06/18/25 08:43 Height 5 ft 2 in Weight 160 lb 2 oz BMI 29.3 BP 120/80 Blood Pressure Location Lt brachial Position Sitting Pulse 87 Pulse Source Pulse Oximeter Temp 97.1 F Temp Source Temporal Artery Scan Pulse Oximetry (%) 99 Oxygen Delivery Method Room Air Intake Visit Reasons: annual exam Study Assistant Required: No Accompanied by: Self / Same As Patient Allergies No Known Drug Allergies Allergy (Unknown, Verified 06/18/25 09:02) none Medication List - Last Reconciled 06/18/25 by Salena Flores MD dextroamphetamine sulfate 5 mg PO BID 30 days dextroamphetamine-amphetamine 10 mg ER 10 mg PO DAILY 30 days levonorgestrel (Mirena) intrauterine Tobacco use date assessed: 06/18/25 Dental Screening Dental Screen Date: 06/18/25 Did you have a dental visit in the last 12 months?: No Did you have a dental problem in the last 6 months where you did not have access to dental care?: No HPI HPI Comments History of Present Illness Details The patient is a 39-year-old individual presenting for a physical exam. The patient's last Pap smear was in 2021 and is up to date. The last Tdap vaccine was administered in 2021 and is not due until 2031. The patient has a surgical history of a right breast lumpectomy and removal of wisdom teeth. Current medications include Adderall 5 mg twice a day, Adderall extended release 10 mg once a day, and a Mirena IUD. The patient reports no allergies to medications. In terms of family history, the patient's parents are alive and have no known health problems. Regarding social history, the patient has never smoked and drinks beer and wine a few times per week. - Pap smear: Up to date, last performed in 2021. - Tdap immunization: Up to date, last ad ministered in 2021. - Mammogram: Recommended due to age, an order will be placed. - Influenza vaccine: Offered and decline d by the patient. - Laboratory screening: Orders will be p laced for a cholesterol panel, blood glucose, and kidney and liver function tests. - HIV screening: Recommended and accepte d by the patient; an order will be placed. [facility] Medical History (Updated 06/18/25 @ 10:21 by Salena Flores MD) Mild major depression Fibroid ADHD Anxiety and depression Surgical History History of lumpectomy of right breast [place] teeth removed Family History Mother No problems noted. Father No problems noted. Social History Household Members Other:: partner Housing: House Alcohol intake: current Alcohol intake frequency: a few times a week Alcohol type: beer and wine Patient Tobacco Use Status: Never used Tobacco e-Cigarette/Vaping Use: Never Used Second Hand Smoke Exposure: No Substance Use Type: Marijuana service: No Current occupational status: employed Current occupation: [employer] Current occupational exposures/hazards: No Cognitive needs: No Hearing needs: No Vision needs: Yes Questionnaire PHQ-9 Over the last 2 weeks, how often have you been bothered by any of the following problems? 1. Little interest or pleasure in doing things: not at all 2. Feeling down, depressed, or hopeless: not at all 3. Trouble falling or staying asleep, or sleeping too much: not at all 4. Feeling tired or having little energy: not at all 5. Poor appetite or overeating: not at all 6. Feeling bad about yourself - or that you are a failure or have let yourself or your family down: not at all 7. Trouble concentrating on things, such as reading the newspaper or watching television: not at all 8. Moving or speaking so slowly that other people could have noticed. Or the opposite - being so fidgety or restless that you have been moving around a lot more than usual: not at all 9. Thoughts that you would be better off or of hurting yourself in some way: not at all Total score: 0 Depression Screening Interpretation: Negative Depression Screening Done: Yes 61412 - PHQ-9 Billing: Yes Source: Developed by Drs. Abilio Little, Billie Corbett, Richy Hart and colleagues, with an educational madeline from [employer]. Thrive Questionnaire Date Thrive assessed: 06/18/25 I am a: Patient What is your living situation today?: I have a steady place to live Within the past 12 months, did the food you bought not last and you didn't have the money to get more?: I choose not to answer this question Within the past 12 months, did you worry whether your food would run out before you got money to buy more?: I choose not to answer this question Do you have trouble paying for medicines?: I choose not to answer this question Do you have trouble getting transportation to medical appointments?: No Do you have trouble paying your heating and electricity bill?: Yes Do you have trouble taking care of your child, family member or friend?: No Do you have trouble with day-to-day activities such as bathing, preparing meals, shopping, managing finances, etc.?: I choose not to answer this question Are you currently unemployed and looking for a job?: I choose not to answer this question Are you interested in more education?: No Please select the resources that you would like help with: None Currently or been in a relationship where the following occur: No concerns reported THRIVE Score: 1 AUDIT C Alcohol Use Questionnaire (AUDIT-C) 1. How often do you have a drink containing alcohol?: Monthly or less 2. How many drinks containing alcohol do you have on a typical day when you are drinking?: 1 or 2 3. How often do you have six or more drinks on one occasion?: Less than monthly Total Score: 2 Score Reviewed/Action Taken: No KATHY-7 AMB Questionnaire KATHY-7 Date KATHY - 7 assessed: 06/18/25 Feeling nervous, anxious, or on edge: 0 = Not at all Not being able to stop or control worryin = Not at all Worrying too much about different things: 0 = Not at all Trouble relaxin = Not at all Being so restless that it is hard to sit still: 0 = Not at all Becoming easily annoyed or irritable: 0 = Not at all Feeling afraid as if something awful might happen: 0 = Not at all Total KATHY-7 score (0-4 normal; 5-9 mild; 10-14 moderate; 15-21 severe): 0 Source: Developed by Drs. Abilio Little, Billie Corbett, Richy Hart and colleagues, with an educational madeline from [employer]. KATHY-7 Assessment Billing KATHY-7 Assessment Tool: KATHY-7 Assessment 72700 Review of Systems Const All systems reviewed & are unremarkable except as noted in HPI and below Card Denies chest pain at rest, Denies chest pain with activity, Denies edema, Denies irregular heart rhythm, Denies claudication, Denies dyspnea, Denies dyspnea on exertion, Denies orthopnea, Denies paroxysmal nocturnal dyspnea and Denies slow heart rate Resp Denies cough, Denies dyspnea and Denies dyspnea on exertion GI Denies abdominal pain, Denies change in bowel habits, Denies excessive flatus, Denies nausea and Denies vomiting Denies urinary incontinence, Denies urinary hesitancy and Denies urinary urgency Physical exam (Primary Care) Vital Signs: Last Vital Signs Temp 97.1 F 06/18/25 08:43 Pulse 87 06/18/25 08:43 BP 120/80 06/18/25 08:43 Pulse Ox 99 06/18/25 08:43 Oxygen Delivery Method Room Air 06/18/25 08:43 BMI result Body Mass Index 29.3 Tobacco/Smoking Status: Tobacco use Status Tobacco use date assessed 06/18/25 06/18/25 08:44 Patient Tobacco Use Status Never used Tobacco 06/18/25 08:44 e-Cigarette/Vaping Use Never Used 06/18/25 08:44 PHQ-9: PHQ-9 Score PHQ-9: Total score 0 06/18/25 09:08 Depression Screening Interpretation: Negative Thrive Assessment: Date of Thrive Assessment Date Thrive assessed 06/18/25 06/18/25 08:44 Currently or been in a relationship where the following occur: No concerns reported [facility] Head: Yes normal to inspection, Yes normocephalic and Yes atraumatic Ears: external ears normal Eyes General: appearance normal, both eyes and all related structures Eyelids: Yes eyelids normal Conjunctivae: conjunctivae normal Neck Neck: Yes normal visual inspection and Yes supple Resp Effort & Inspection: normal respiratory effort Auscultation: clear to auscultation bilaterally Cardio Jugular venous distension: no JVD Rate: regular rate Rhythm: regular rhythm Heart sounds: S1 normal heart sound present and S2 normal heart sound present GI Inspection: Yes normal to inspection Palpation (GI): Soft to palpation and nontender Auscultation: normal bowel sounds Skin General skin exam: no rashes or lesions noted Neuro General: no focal motor deficits Extrem General: Yes full ROM Psych Appearance: grossly normal Coding Level of Care Code Est Pt Prev Care 40-64y(06358) Diagnoses Physical exam Z00.00 Additional Codes KATHY-7 Assessment Billing - KATHY-7 Assessment Tool: KATHY-7 Assessment 34933 ([id number]) PHQ-9 - 77305 - PHQ-9 Billing: Yes ([id number]) Time Spent (min) 30 Assessment & Plan Assessment & Plan (1) Physical exam: Code(s): Z00.00 - Encounter for general adult medical examination without abnormal findings Category: Medical Plan Plan 1. Annual Physical Examination The patient presented for a routine annual physical examination. Health maintenance screenings were reviewed, noting that the Pap smear and Tdap vaccine are up to date. A screening mammogram will be ordered as the patient is now 39 years old. Routine screening labs, including cholesterol, glucose, kidney, and liver panels, will be ordered. An influenza vaccine was offered but declined by the patient. An HIV screening test was recommended and accepted. A screening mammogram will be ordered for breast cancer screening, as the patient is 39 years old and has no prior mammograms on record. The patient was informed that the imaging center will call to schedule the appointment and was advised not to wear deodorant on the day of the procedure. Orders: Orders MM tomosynthesis screening BI Today Z12.31 - Encounter for screening mammogram for malignant neoplasm of breast Comprehensive [place]. Panel Fast Today Z00.00 - Encounter for general adult medical examination without abnormal findings HIV Ab/Ag Today Z11.4 - Encounter for screening for human immunodeficiency virus [HIV] Lipid Panel Today Z00.00 - Encounter for general adult medical examination without abnormal findings
--- OUTSIDE RECORDS SUMMARY | 2025-06-18 08:48 | XMS_ITS | Clinical Summary ---
Author Organization [facility] Address [address] [place] [address] Phone Care Team Providers Care Mold Car Pusher Name Role Phone Unknown, Unknown Primary Care [...] topic Medical Devices Not on file Insurance [facility] PUBLIC PLANS DIRECT JAZMIN ESPARZA [id number] [facility] DIRECT [facility] DIRECT [facility] DIRECT [facility] DIRECT [facility] DIRECT [facility] DIRECT [facility] DIRECT Care Teams Mold Car Pusher Relationship Specialty Start Date End Date Unknown, Unknown, PCP - General 02/25/21 Additional Source Comments The information contained in this document represents components of the legal health record. It is not the complete legal health record.[facility]
== END 2025-06-18 09:14 | disposition home or self-care (01) ==
LOC: HO.HMCH 08:30
PROVIDERS: PCP Internal Medicine; Visit Provider Internal Medicine
DX: Z00.00 Encounter for general adult medical examination without abnormal findings (principal)

== ENCOUNTER → 2025-06-18 08:29 | Outpatient (BNVA) | payer OTHER, SELFPAY | PROVIDERS: PCP Internal Medicine; Visit Provider Internal Medicine | DX: Z00.00 Encounter for general adult medical examination without abnormal findings (principal) | CPT/HCPCS: 96127; 99396 ==